=== PATIENT | female | born 1995 | race Caucasian/White ===

== ENCOUNTER 2023-05-20 17:38 | Emergency (ER) | payer OTHER, MEDICAID, SELFPAY ==
[2023-05-20 17:50] VITALS: BP 134/89; PULSE 71; RESP 16; TEMP 37.3; O2SAT 100
--- NOTE | 2023-05-20 18:28 | ED.URI ---
HPI - URI/Sore Throat General Chief Complaint: Upper Respiratory Infection Stated Complaint: Sore Throat Time Seen by Provider: 05/20/23 18:15 Source: patient, RN notes reviewed and old records reviewed Mode of arrival: ambulatory Limitations: no limitations History of Present Illness HPI Narrative: 27-year-old female who presents to [facility] with of sore throat for the past 4 days. Patient says she does have some cough denies any acute recent nasal drainage or congestion. Patient states she has been taking Tylenol for her symptoms. Patient reports that she does have increased pain with swallowing.Patient reports no know fevers, headaches or any body aches. MD elicited complaint: sore throat Onset (ago): day(s) (4) Consistency: constant Pain scale (0-10): 7 Able to tolerate fluids by mouth: Yes Exacerbating factors: swallowing Treatments prior to arrival: acetaminophen Related Data Home Medications Medication Instructions Recorded Confirmed citalopram 10 mg tablet mg 05/20/23 omeprazole 40 mg capsule,delayed mg 05/20/23 release Allergies Allergy/AdvReac Type Severity Reaction Status Date / Time doxycycline Allergy Rash Verified 05/20/23 18:10 Review of Systems Review of Systems: CONSTITUTIONAL: Denies malaise, chills, sweats, or fever. EYES: Denies visual changes, redness, or discharge. ENT: Reports mild rhinorrhea, congestion, sinus pain, no otalgia and positive sore throat. CARDIOVASCULAR: Denies chest pain, palpitations, or edema. RESPIRATORY: Reports cough.? Denies dyspnea. GASTROINTESTINAL: Denies abdominal pain, nausea, vomiting, diarrhea SKIN: Denies rash or itching. MUSCULOSKELETAL: Denies myalgia. NEUROLOGIC: Denies headache. All systems reviewed & are unremarkable except as noted in HPI and below [facility] Past Medical History Medical History (Updated 05/23/23 @ 12:47 by Trice Foreman NP) Anxiety and depression Hidradenitis axillaris Surgical History Surgical History (Updated 05/23/23 @ 12:41 by Trice Foreman NP) History of excision of epidermal inclusion cyst axilla left Hx of bilateral salpingectomy Hx of cholecystectomy Social History Social History (Updated 05/23/23 @ 12:59 by Trice Foreman NP) Smoking status: Never smoker Alcohol intake: current Alcohol use details: rare social Substance use type: does not use Gender identity (if verbalized by the patient): Female Comments At time of signature, agree with nursing past medical, surgical, social and family history. There is no relevant family history pertinent to the presenting complaint Exam Narrative: GENERAL: Well-appearing, well-nourished, and in no acute distress. HEAD: Normocephalic EYES: PERRLA, conjunctivae clear ENT: Nares clear, turbinates edematous and erythematous, clear discharge. Mucous membranes moist. TM pearly webber with dull light reflex bilaterally; no tragal tenderness. Oropharynx erythematous without lesions. Tonsils not enlarged and without exudate, no drooling, no hoarseness, no trismus, uvula midline. NECK: Supple. No lymphadenopathy CHEST: Clear to auscultation, breath sounds equal. No wheezing, rhonchi, rales, or stridor. No respiratory distress, speaks in full sentences.SAO2 100% on room air HEART: Regular rate and rhythm. No murmur heard. SKIN: Warm, dry, no rash. NEURO: Alert and oriented x3. PSYCH: Normal mood and affect Course Course Emergency Course: Patient is aware of diagnosis, understands and agrees to treatment plan.? Anticipatory guidance given.? Patient agrees to follow-up as directed and is aware of reasons to seek care at the emergency department. Portions of this record may have been created with voice recognition software Level of Care: Express Care Visit Vital Signs Vital signs: Vital Signs Temperature 37.3 C 05/20/23 17:50 Pulse Rate 71 05/20/23 17:50 Respiratory Rate 16 05/20/23 17:50 Blo
== END 2023-05-20 18:48 | disposition home or self-care (01) ==
PROVIDERS: Emergency Provider Registered Nurse; PCP Nurse Practitioner Family
DX: J06.9 Acute upper respiratory infection, unspecified (principal); J02.9 Acute pharyngitis, unspecified
CPT/HCPCS: 87081; 87880; 99213; G0463